=== PATIENT | male | born 1985 | race Caucasian/White ===

== ENCOUNTER 2018-09-24 15:57 | Emergency (ER) | payer OTHER, MEDICAID, SELFPAY ==
[2018-09-24 16:00] VITALS: BP 118/65; PULSE 55; RESP 14; TEMP 36.7; O2SAT 97
[2018-09-24 16:34] LABS: Influenza A and B by PCR Rapid Negative (Negative)
[2018-09-24 19:00] VITALS: BP 119/62; PULSE 58; RESP 14; TEMP 36.9; O2SAT 99
--- NOTE | 2018-09-24 23:58 | ED_ITS ---
HPI - URI/Sore Throat General Chief Complaint: Upper Respiratory Symptoms Stated Complaint: SINUS PAIN Time Seen by Provider: 09/24/18 18:44 Source: patient and family Mode of arrival: ambulatory Limitations: no limitations History of Present Illness HPI Narrative: 33-year-old male smoker without significant medical history presents with his in the chief complaint of a few days of nasal drainage, congestion, facial pain and cough. He has had no production of sputum. He has had no fever or chills nor headache or sore throat. He he has been exposed to other ill persons. He denies nausea, vomiting or diarrhea. MD Complaint: cough, rhinorrhea, nasal congestion and sinus pain Onset (ago): day(s) Duration: constant Severity: moderate Relieving factors: nothing Exacerbating factors: nothing Able to tolerate fluids by mouth: Yes Treatments prior to arrival: cold medicine Related Data Home Medications Medication Instructions Recorded Confirmed ibuprofen 1,000 mg PO EVERY 4 PRN #0 09/18/17 Previous Rx's Medication Instructions Recorded diazepam [Valium] 5 mg PO Q8HP PRN #10 tab 09/18/17 meloxicam [Mobic] 7.5 mg PO BIDCC PRN #20 tab 09/18/17 tramadol 0 tab PO Q6HP PRN #20 tab 09/18/17 Allergies Allergy/AdvReac Type Severity Reaction Status Date / Time No Known Allergies Allergy Uncoded 10/03/17 12:52 Review of Systems Constitutional Denies chills, Denies fever(s), Denies lethargy and Denies weakness Eyes Denies change in vision, Denies eye discharge, Denies irritation and Denies loss of vision ENT Ears, Nose, Mouth, and Throat: Denies change in voice, Denies neck pain, Reports post nasal drip, Reports sinus pain, Reports sinus pressure and Denies sore throat Cardiovascular Denies chest pain, Denies irregular heart rhythm, Denies lightheadedness, Denies palpitations, Denies dyspnea, Denies dyspnea on exertion and Denies orthopnea Respiratory Reports cough, Denies dyspnea, Denies dyspnea on exertion and Denies wheezing Gastrointestinal Gastrointestinal: Denies abdominal pain, Denies change in bowel habits, Denies diarrhea, Denies nausea and Denies vomiting Genitourinary Denies hematuria, Denies flank pain, Denies urinary incontinence and Denies urinary urgency Musculoskeletal Denies neck pain Integumentary/Breasts Denies pruritus, Denies erythema, Denies rash and Denies wounds Neurologic Denies confusion, Denies loss of vision and Denies weakness Psychiatric Denies anxiety, Denies confusion, Denies depression, Denies homicidal ideation and Denies suicidal ideation Endocrine Denies palpitations Hematologic/Lymphatic Denies easy bruising Allergic/Immunologic Denies wheezing PFSH Social History Smoking Status: Current every day smoker Social History Smoking Status: Current every day smoker Exam Narrative Exam Narrative: GEN: AOx3 and in mild distress EYES: Pupils are equal, round, and reactive to light and accommodation. Extraoccular muscles are intact bilaterally. There is no subconjunctival hemorr kirsten or exudate. ENT: clear post nasal drip. No pharyngeal erythema or exudate. TMs rodriguez B/L with normal landmarks CHEST: Lungs are clear to auscultation bilaterally and free of wheezes, rales, or rhonchi. Heart rate is regular rhythm, there are no murmurs, clicks, rubs, or gallops. There is no chest wall tenderness. ABD: Abdomen is soft and nontender. There is no guarding or rebound. Bowel s ounds are normal in all 4 quadrants. There is no mass or organomegaly. EXT: Full painless ROM of all extremities with no loss of sensation or strength. SKIN: Warm, pink, and dry. No erythema or rash Initial Vital Signs Initial Vital Signs: Vital Signs Temperature 98.1 F 09/24/18 16:00 Pulse Rate 55 L 09/24/18 16:00 Respiratory Rate 14 09/24/18 16:00 Blood Pressure 118/65 09/24/18 16:00 Pulse Oximetry 97 09/24/18 16:00 Course Orders Ordered: ED Orders 09/24/18 16:04 Influenza A and B by PCR Rapid Stat Vital Signs - 8 hr 09/24/18 16:00 09/24/18 19:00 Temperature 98.1 F 98.4 F Pulse Rate 55 L 58 L Respiratory Rate 14 14 Blood Pressure 118/65 119/62 Pulse Oximetry 97 99 MDM - URI/Sore Throat Lab Data Lab Results 09/24/18 Range/Units 16:04 Influenza A & B (PCR) Negative (Negative) Discharge Plan Departure Patient Disposition: Home Clinical Impression: Upper respiratory infection, viral Discharge Date/Time: 09/24/18 19:00 Interventions: ED Discharge Assessment Last Done: 09/24/18 19:00 Instructions: Common Cold Activity Restrictions/Additional Instructions: *You have been diagnosed with [ acute viral URI ] *What to do: *Take medications as directed: over the counter cough and cold meds, make sure it has an antihistamine to dry your secretions *Follow up with your primary care provider in 2-3 days, call for an appointment. Let them know you were seen in the Emergency Department and that we ask that you be seen in follow up *Return to ER if you should have any new, worsening or concerning symptoms Prescriptions: No Action ibuprofen 400 MG tablet 1,000 mg PO EVERY 4 PRNQty: 0 RF: 0 tramadol 50 MG tablet PO Q6HP PRNQty: 20 RF: 0 meloxicam [Mobic] 7.5 MG tablet 7.5 mg PO BIDCC PRNQty: 20 RF: 0 diazepam [Valium] 5 MG tablet 5 mg PO Q8HP PRNQty: 10 RF: 0 Referrals: Vern Mack [Primary Care Provider] - Stand Alone Forms: Work/School Release
== END 2018-09-24 19:00 | disposition home or self-care (01) ==
PROVIDERS: Emergency Medicine; Emergency Provider Emergency Medicine; Family Provider Physician Assistant Medical; PCP Physician Assistant Medical
DX: J06.9 Acute upper respiratory infection, unspecified (principal)
CPT/HCPCS: 87400; 99282

== ENCOUNTER 2018-11-14 22:07 | Emergency (ER) | payer OTHER, MEDICAID, SELFPAY ==
[2018-11-14 22:37] VITALS: BP 118/79; PULSE 76; RESP 20; TEMP 37.1; O2SAT 98; BMI 37.3
--- NOTE | 2018-11-14 23:53 | ED_ITS ---
HPI - URI/Sore Throat General Chief Complaint: Upper Respiratory Symptoms Stated Complaint: Fever, Sinus Pressure, Sore Throat Time Seen by Provider: 11/14/18 23:52 Source: patient Mode of arrival: ambulatory Limitations: no limitations History of Present Illness HPI Narrative: The patient has been ill for 3 days with fever and sore throat. He has minimal cough. He has ear pressure. He is a smoker. He has no a llergies or asthma. He has no productive cough. He has no other complaints. He has been around no one with similar illness. Related Data Home Medications Medication Instructions Recorded Confirmed ibuprofen 1,000 mg PO EVERY 4 PRN #0 09/18/17 Previous Rx's Medication Instructions Recorded diazepam [Valium] 5 mg PO Q8HP PRN #10 tab 09/18/17 meloxicam [Mobic] 7.5 mg PO BIDCC PRN #20 tab 09/18/17 tramadol 0 tab PO Q6HP PRN #20 tab 09/18/17 amoxicillin 500 mg PO TID #26 cap 11/15/18 Allergies Allergy/AdvReac Type Severity Reaction Status Date / Time No Known Allergies Allergy Uncoded 10/03/17 12:52 Review of Systems Review of Systems ROS Unobtainable: All systems reviewed & are unremarkable except as noted in HPI and below Constitutional Reports anorexia, Reports body ache(s), Reports chills and Reports fever(s) Eyes Denies eye discharge ENT Ears, Nose, Mouth, and Throat: Denies change in voice, Denies dizziness, Denies ear discharge, Reports neck pain and Reports sore throat Cardiovascular Denies chest pain and Denies orthopnea Respiratory Denies cough and Denies wheezing Gastrointestinal Gastrointestinal: Denies abdominal pain, Denies change in bowel habits, Denies diarrhea, Denies nausea and Denies vomiting Musculoskeletal Reports neck pain Integumentary/Breasts Denies pruritus, Denies erythema and Denies rash Neurologic Denies dizziness Allergic/Immunologic Denies wheezing PFSH Surgical History (Updated 11/15/18 @ 00:03 by Yovany Anderson MD) No pertinent past surgical history (Acute) Social History Smoking Status: Current every day smoker Social History Smoking Status: Current every day smoker Exam Initial Vital Signs Initial Vital Signs: Vital Signs Temperature 98.8 F 11/14/18 22:37 Pulse Rate 76 11/14/18 22:37 Respiratory Rate 20 11/14/18 22:37 Blood Pressure 118/79 11/14/18 22:37 Pulse Oximetry 98 11/14/18 22:37 Const General: cooperative and well developed Nutritional Appearance: well nourished Orientation: alert, awake, oriented x3 and not confused HENMT Head: normocephalic and atraumatic Ears: external ears normal and TM's normal bilaterally Nose: external nose normal and No nasal discharge Face and sinus: sinuses nontender and face symmetric Mouth: oral mucosae normal and moist mucous membranes Teeth and gingiva: dentition normal Throat: abnormal tonsil (erythema with exudate) bilaterally Extrem General: full ROM Course Course Narrative: The patient has strep throat. He was started on ibuprofen for pain or fever, as well as amoxicillin. He will be discharged home with a work excuse for 2 days. Vital Signs - 8 hr 11/14/18 22:37 Temperature 98.8 F Pulse Rate 76 Respiratory Rate 20 Blood Pressure 118/79 Pulse Oximetry 98 MDM - URI/Sore Throat Lab Data Point of Care Testing Rapid Strep A Positive Discharge Plan Departure Patient Disposition: Home Clinical Impression: Acute streptococcal pharyngitis Instructions: DI for Strep Throat Activity Restrictions/Additional Instructions: Amoxicillin 500 mg 3 times daily for 10 days. Tylenol 2 tablets every 4 hours, or Advil 4 tablets every 6-8 hours. Be sure you are drinking plenty of fluids and stay well hydrated. Return to the ER if necessary. Prescriptions: New amoxicillin 500 mg capsule 500 mg PO TID Qty: 26 RF: 0 No Action ibuprofen 400 MG tablet 1,000 mg PO EVERY 4 PRNQty: 0 RF: 0 tramadol 50 MG tablet PO Q6HP PRNQty: 20 RF: 0 meloxicam [Mobic] 7.5 MG tablet 7.5 mg PO BIDCC PRNQty: 20 RF: 0 diazepam [Valium] 5 MG tablet 5 mg PO Q8HP PRNQty: 10 RF: 0 Referrals: Vern Mack [Primary Care Provider] - Stand Alone Forms: Work Release Note
[2018-11-15] MEDS: AMOXICILLIN 250 MG PREPACK 1 BOTTLE MISC (00:03)
[2018-11-15] MEDS: IBUPROFEN 400 MG TABLET 800 MG PO (00:04)
[2018-11-15 00:16] VITALS: BP 121/81; PULSE 72; RESP 18; TEMP 36.6; O2SAT 99
== END 2018-11-15 00:17 | disposition home or self-care (01) ==
PROVIDERS: Emergency Provider Emergency Medicine; Family Provider Physician Assistant Medical; PCP Physician Assistant Medical
DX: J02.0 Streptococcal pharyngitis (principal)
CPT/HCPCS: 87880; 99282; 99283

== ENCOUNTER 2020-03-22 19:38 | Emergency (ER) | payer OTHER, MEDICAID, SELFPAY ==
[2020-03-22 20:08] VITALS: BP 125/68; PULSE 66; RESP 16; TEMP 36.6; O2SAT 97; BMI 40.1
[2020-03-22 20:33] LABS: RBC Urine None Seen (0-5/HPF)
[2020-03-22 20:55] LABS: Amorphous Sediment Urine 1+; Bacteria Urine Few (2-10); Culture Indicated Urine Specimen Cultured; Mucus Urine 1+ (Negative); Squamous Epithelial Cell Urine 0-1 /HPF (0-5/HPF); WBC Urine 10-30/HPF (0-5/HPF)
[2020-03-22] MEDS: cephALEXin 250 MG CAPSULE 500 MG PO (21:15)
[2020-03-22 21:23] VITALS: BP 129/70; PULSE 77; RESP 16; O2SAT 98
[2020-03-22] MEDS: cephALEXin 250 MG PREPACK 1 BOTTLE MISC (21:30)
--- NOTE | 2020-03-23 02:50 | ED.MALEGU ---
HPI - Male Genitourinary <PHIL Lorenzana - Last Filed: 03/23/20 02:57> General Chief complaint: Urogenital-Male Stated complaint: Thinks UTI Time Seen by Provider: 03/22/20 21:02 Source: patient Mode of arrival: Ambulatory Limitations: no limitations History of Present Illness HPI Narrative: This is a 34-year-old male, smoker, was noncontributing medical history presents to ED with significant other with chief complain of discomfort with urination for about 10 days. Patient denies urinary frequency, urgency, flank pain, fever, chills, nausea or vomiting. Patient denies unusual penile discharge. Patient is not concerned for STIs reporting has one sexual partner. Patient denies discomfort or swelling in perineum or testes. Patient denies sensation of urinary retention or hematuria. Patient denies history of diabetes or previous frequent UTI. Related Data Home Medications Medication Instructions Recorded Confirmed ibuprofen 1,000 mg PO EVERY 4 PRN #0 09/18/17 Previous Rx's Medication Instructions Recorded diazepam [Valium] 5 mg PO Q8HP PRN #10 tab 09/18/17 meloxicam [Mobic] 7.5 mg PO BIDCC PRN #20 tab 09/18/17 tramadol 0 tab PO Q6HP PRN #20 tab 09/18/17 cephalexin [Keflex] 500 mg PO Q6H 7 Days #28 cap 03/22/20 Allergies Allergy/AdvReac Type Severity Reaction Status Date / Time No Known Allergies Allergy Uncoded 10/03/17 12:52 Review of Systems <PHIL Lorenzana - Last Filed: 03/23/20 02:57> Review of Systems Narrative: General: Denies fever, chills, fatigue, malaise, sweats. Respiratory: Denies dyspnea, cough, wheezing, hemoptysis, sputum. Cardiovascular: Denies chest pain, palpitations, orthopnea, edema. Gastrointestinal: Denies nausea, vomiting, abdominal pain, diarrhea, constipation, melena. : See HPI Skin: Denies rash, skin lesions, or other. Neurologic: Denies weakness, headache, numbness, change in speech, confusion, seizures, incoordination. Patient History <PHIL Lorenzana - Last Filed: 03/23/20 02:57> Medical History No significant past medical history (Acute) Surgical History No pertinent past surgical history (Acute) Social History Smoking Status: Current every day smoker Smoking Status: Current every day smoker alcohol intake frequency: a few times a month Substance Use Type: marijuana Exam <PHIL Lorenzana - Last Filed: 03/23/20 02:57> Narrative Exam Narrative: General appearance: well developed, well nourished, in no acute distress. Head: normocephalic, atraumatic, no scalp lesions, non-tender. ENT: Hearing grossly intact. Nose without bleeding, purulent discharge. Airway patent. Neck/Thyroid: neck supple, full range of motion, no visible masses or meningeal signs. No JVD, non-tender without lymphadenopathy. Skin: no suspicious rashes, lesions over visible areas. Warm and dry and appropriate color for ethnicity. Heart: no clubbing, no cyanosis, no edema. S1 and S2 normal. RRR w/o murmurs, clicks, or bruits. Lungs: Breathing even and unlabored. No stridor. No accessory muscles used. Able to speak in full sentences. Chest: normal shape and expansion. Abdomen: non-obese, non-distended. Neurologic: alert and oriented. Cognitive exam, HOUSEMAID and PNS grossly intact on informal exam. Psych: good eye contact, normal affect. Initial Vital Signs Initial Vital Signs: Vital Signs Temperature 97.8 F 03/22/20 20:08 Pulse Rate 66 03/22/20 20:08 Respiratory Rate 16 03/22/20 20:08 Blood Pressure 125/68 03/22/20 20:08 Pulse Oximetry 97 03/22/20 20:08 <Evans Mason DO - Last Filed: 03/23/20 03:14> Initial Vital Signs Initial Vital Signs: Vital Signs Temperature 97.8 F 03/22/20 20:08 Pulse Rate 66 03/22/20 20:08 Respiratory Rate 16 03/22/20 20:08 Blood Pressure 125/68 03/22/20 20:08 Pulse Oximetry 97 03/22/20 20:08 Scores <Femi ZepedaTENA goldmanP - Last Filed: 03/23/20 02:57> GCS Hector coma scale eye opening: Spontaneous [place] coma scale verbal response: Orientated [place] coma scale motor response: Obey commands Hector coma scale total score: 15 Course <Femi ZepedaPHIL goldman - Last Filed: 03/23/20 02:57> Orders Ordered: ED Orders 03/22/20 20:16 Urine Culture Stat Urine Microscopic Stat Discontinued Medications Cefazolin Sodium (Keflex 250 Mg Prepack) 1 bottle MISC SEEINSTR ONE Stop: 03/22/20 21:25 Last Admin: 03/22/20 21:30 Dose: 1 pack Documented by: JAH Cephalexin HCl (Keflex) 500 mg PO NOW ONE Stop: 03/22/20 21:13 Last Admin: 03/22/20 21:15 Dose: 500 mg Documented by: NURIA Vital Signs Vital signs: Vital Signs - 8 hr 03/22/20 20:08 03/22/20 21:23 Temperature 97.8 F Pulse Rate 66 77 Respiratory Rate 16 16 Blood Pressure 125/68 129/70 Pulse Oximetry 97 98 <Evans Mason DO - Last Filed: 03/23/20 03:14> Orders Ordered: ED Orders 03/22/20 20:16 Urine Culture Stat Urine Microscopic Stat Discontinued Medications Cefazolin Sodium (Keflex 250 Mg Prepack) 1 bottle MISC SEEINSTR ONE Stop: 03/22/20 21:25 Last Admin: 03/22/20 21:30 Dose: 1 pack Documented by: JAH Cephalexin HCl (Keflex) 500 mg PO NOW ONE Stop: 03/22/20 21:13 Last Admin: 03/22/20 21:15 Dose: 500 mg Documented by: ORLININ Vital Signs Vital signs: Vital Signs - 8 hr 03/22/20 20:08 03/22/20 21:23 Temperature 97.8 F Pulse Rate 66 77 Respiratory Rate 16 16 Blood Pressure 125/68 129/70 Pulse Oximetry 97 98 MDM - Male Genitourinary <Femi Teixeira-CatarinoPHIL goldman - Last Filed: 03/23/20 02:57> Differential Diagnosis Differential diagnosis: Likely urinary tract infection and urethritis Medical Records Attestation: I reviewed the patient's medical records. Lab Data Attestation: I reviewed the patient's lab results. Labs: Lab Results 03/22/20 Range/Units 20:16 Urine RBC None seen (0-5/HPF) Urine WBC 10-30/hpf H (0-5/HPF) Ur Squamous Epith Cells 0-1 /hpf (0-5/HPF) Amorphous Sediment 1+ Urine Bacteria Few (2-10) H (None) Urine Mucus 1+ H (Negative) Ur Culture Indicated? Specimen cultured Urine Dip Bedside Urine Glucose Negative Bedside Urine Bilirubin - Negative Bedside Urine Ketone - Negative Urine Specific [place] 1.020 Bedside Urine Occult Blood - Negative Bedside Urine pH 6.0 Bedside Urine Protein - Negative Bedside Urine Urobilinogen - Negative Bedside Urine Nitrite - Negative Bedside Urine Leukocytes +/- 15 Esterase MDM Narrative Medical decision making narrative: Physical exam is unremarkable. Patient's only symptoms is dysuria without previous UTI, prostatitis, diabetes or immunocompromise condition. Patient is afebrile, nontoxic appearing, with normotensive and heart rate. Urine test shows +/- 15 of leukoesterase without nitrites. Urine microscopic test shows 10-30 hpf of WBC with few bacteria. Urine culture is pending. Patient is likely have UTI. Patient is treated with Keflex 500 mg q.i.d. for 7 day course as male UTI. Return precautions were discussed with patient and patient verbalized understanding and agreement to treatment plan. <Evans Mason DO - Last Filed: 03/23/20 03:14> Lab Data Labs: Lab Results 03/22/20 Range/Units 20:16 Urine RBC None seen (0-5/HPF) Urine WBC 10-30/hpf H (0-5/HPF) Ur Squamous Epith Cells 0-1 /hpf (0-5/HPF) Amorphous Sediment 1+ Urine Bacteria Few (2-10) H (None) Urine Mucus 1+ H (Negative) Ur Culture Indicated? Specimen cultured Urine Dip Bedside Urine Glucose Negative Bedside Urine Bilirubin - Negative Bedside Urine Ketone - Negative Urine Specific [place] 1.020 Bedside Urine Occult Blood - Negative Bedside Urine pH 6.0 Bedside Urine Protein - Negative Bedside Urine Urobilinogen - Negative Bedside Urine Nitrite - Negative Bedside Urine Leukocytes +/- 15 Esterase Discharge Plan Departure Patient Disposition: Home Clinical Impression: Acute UTI Discharge Date/Time: 03/22/20 21:33 Instructions: DI for Urinary Tract Infection (UTI) Activity Restrictions/Additional Instructions: You have been diagnosed with [UTI. Urine appears to be have an infection. Urine culture is pending. Your treated with 1st dose of antibiotic medication Keflex in ED. please continue to take 4 times a day for next 7 days.]. What to do: *Take your medications as directed. Keflex have been transmitted to [facility] in [place]. *Follow up with your primary care provider in 2-3 days, call for an appointment. Let them know you were seen in the ED and that we asked you to be seen in follow up. *Return to ED if you have any new, worsening, or concerning symptoms, such as [worsening pain, high fever, nausea, vomiting, back pain, unusual penile discharge, pain in testicles or any acute concerns]. Prescriptions: New cephalexin [Keflex] 500 mg capsule 500 mg PO Q6H 7 Days Qty: 28 RF: 0 No Action ibuprofen 400 MG tablet 1,000 mg PO EVERY 4 PRNQty: 0 RF: 0 tramadol 50 MG tablet 0 tab PO Q6HP PRNQty: 20 RF: 0 meloxicam [Mobic] 7.5 MG tablet 7.5 mg PO BIDCC PRNQty: 20 RF: 0 diazepam [Valium] 5 MG tablet 5 mg PO Q8HP PRNQty: 10 RF: 0 Referrals: Vern Mack [Primary Care Provider] - <Evans Mason DO - Last Filed: 03/23/20 03:14> [facility] Dr Mason Co-Sign Statement: I was available for consultation during this patient's emergency department visit. This chart is signed by myself for administrative purposes only. I did not have direct contact with this patient during this visit. They were seen independently by the APC.
== END 2020-03-22 21:33 | disposition home or self-care (01) ==
PROVIDERS: Emergency Medicine; Emergency Provider Nurse Practitioner Family; Family Provider Physician Assistant Medical; PCP Physician Assistant Medical
DX: N39.0 Urinary tract infection, site not specified (principal)
CPT/HCPCS: 81003; 81015; 87086; 99283

== ENCOUNTER → 2021-07-12 11:23 | Outpatient (CLI) | payer OTHER, MEDICAID, SELFPAY ==
[2021-07-12 12:15] LABS: COVID19 -Nasal RAPID POSITIVE (Negative)
== END ==
PROVIDERS: Family Provider Physician Assistant Medical; PCP Physician Assistant Medical; Referring Provider Physician Assistant; Visit Provider Physician Assistant
DX: U07.1 COVID-19 (principal); Z20.822 Contact with and (suspected) exposure to COVID-19
CPT/HCPCS: 87635

== ENCOUNTER 2022-06-08 19:18 | Emergency (ER) | payer OTHER, MEDICAID, SELFPAY ==
[2022-06-08 19:31] VITALS: BP 121/62; PULSE 77; RESP 24; TEMP 36.9; O2SAT 95; BMI 40.1
[2022-06-08 21:52] LABS: Influenza A - CEPHEID Flu A POSITIVE (NEGATIVE); Influenza B - CEPHEID Flu B NEGATIVE (NEGATIVE); Respiratory Syncytial Virus Negative (Negative)
[2022-06-08 21:53] LABS: COVID-19 CEPHEID 4-PLEX PCR Negative (Negative)
== END 2022-06-08 22:07 | disposition left against medical advice (07) ==
PROVIDERS: Emergency Provider Emergency Medicine; Family Provider Physician Assistant Medical; PCP Physician Assistant Medical
DX: R50.9 Fever, unspecified (principal)
CPT/HCPCS: 0241U; 99281

== ENCOUNTER 2022-07-07 14:30 | Outpatient (RCR) | payer OTHER, MEDICAID, SELFPAY ==
--- NOTE | 2022-06-27 18:43 | PT.OIE ---
Current Diagnoses Other chronic pain (06/27/22) Pain in left knee (06/27/22) Difficulty in walking, not elsewhere classified (06/27/22) Weakness (06/27/22) Past Medical History (Last Reviewed 07/12/21 @ 11:47 by Amber Wayne PA-C) No significant past medical history Past Surgical History (Last Reviewed 07/12/21 @ 11:47 by Amber Wayne PA-C) No pertinent past surgical history Visit Care Team Role Provider Type Vern Mack PA-C Family Provider Non-Staff Specialty: Medical Address: [address] [place] [address], [id number] Email: Chalino Recio MD Attending Provider Non-Staff Primary Care Provider Referring Provider Specialty: Family Practice Address: [address] [place] [address], [id number] Email: Physical Therapy Initial Evaluation PT-OP-A Visit Information Start: 06/08/22 18:07 Freq: Status: Active Protocol: Document 06/27/22 14:37 [facility] (Rec: 06/27/22 15:24 [facility] [id number]) Out-Patient Physical Therapy Visit Information Visit Information Visit Type Initial Evaluation Visit Start Time 14:37 Visit Stop Time 15:19 Total Visit Minutes 42 Visit Number 1 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 He did He typically does [place] and has to go up/ down ladders which really irritates it. He is laid off right now (since Mar)and is hoping to get it taken care of while off. He used to do a lot of extreme sports and had a lot of injuries. He has stopped sport because he kept getting hurt. Knee has given out on him. He does have back pain but its mostly with work. Pt reports he gets sore after hiking but not as bad as his pain w/work. He sometimes has to take days off mid season d/ t his knee. Pt reprots hx of cracked knee caps. He does try to workout w/his older kid and gets sore w/running etc. He is more painful on uneven surfaces. hx of L broken ankle w/o treatment Prior Treatments and Tests Xray-nothing visualized Treatment Goals Patient/Caregiver Goals Be able to work iwthout pain, hike w/family & workout w/son PT-OP-C Subjective Start: 06/08/22 18:07 Freq: Status: Active Protocol: Document 06/27/22 14:37 [facility] (Rec: 06/27/22 15:24 [facility] [id number]) Patient Questionnaires Lower Extremity Functional Scale LEFS Score 47 OP-PT Pain Assessment Location L knee Pain Location Details lat knee Scale Used worst 8/10 Description Throbbing,With Movement Frequency Intermittent Pain Duration a couple days Pain Aggravating Factors Stair Climbing Other Pain Aggravating Factors ladders, high steps, squatting , kneeling Pain Alleviating Factors Inactivity Other Pain Alleviating Factors icyhot PT-OP-D Balance Start: 06/08/22 18:07 Freq: Status: Active Protocol: Document 06/27/22 14:37 [facility] (Rec: 06/27/22 15:24 [facility] [id number]) Balance Tests Single Limb Standing Single Limb- Right > 30 sec min lat lean; EC 5 sec Single Limb- Left >30 sec sig lat lean; EC 4 sec PT-OP-F Manual Assessment Start: 06/08/22 18:07 Freq: Status: Active Protocol: Document 06/27/22 14:37 [facility] (Rec: 06/27/22 15:24 [facility] [id number]) Manual Assessments Soft Tissue Assessment Soft Tissue Mobility Assessment tightness: L HS, calf, ITB, tender at jt line and LCL Joint Mobility Assessment Joint Mobility Assessment L>R tibia IR and IR w/knee bend; L femur ER w/knee bend PT-OP-G Mobility & Gait Start: 06/08/22 18:07 Freq: Status: Active Protocol: Document 06/27/22 14:37 [facility] (Rec: 06/27/22 15:24 [facility] [id number]) OP Gait Assessment Comments Gait Comments dec push off L>R; dec stance time LLE and lat lean over LLE PT-OP-K Range of Motion Start: 06/08/22 18:07 Freq: Status: Active Protocol: Document 06/27/22 14:37 [facility] (Rec: 06/27/22 15:24 [facility] [id number]) Knee Goniometric Range of Motion Knee Right Flexion Active (degrees) 120 Hyper-Extension Active 2 Comments knee to wall 2 in Left Flexion Active (degrees) 119 Extension Active (degrees) 0 Comments knee to wall 1 in; flex tight PT-OP-L Special Tests Start: 06/08/22 18:07 Freq: Status: Active Protocol: Document 06/27/22 14:37 [facility] (Rec: 06/27/22 15:24 [facility] [id number]) Special Tests Knee Special Tests Segura Chondromalacia Test Results neg-does not improve pain Thessaly Test 5 Degrees Test Results positive pain Apley's Compression Test Results positive pain Sarah Test Test Results positive for pain w/med rot Amanda's Test Test Results L post Walton's Compression Test Results neg Straight Leg Raise Test Results L 78; R 90 Gold Test Results RF & hip flexors tight B Varus- 25 Degrees Test Results pain & laxity Valgus- 25 Degrees Test Results pain;mild laxity Posterior Draw Test Results neg Olu's Test Results neg PT-OP-M Strength Start: 06/08/22 18:07 Freq: Status: Active Protocol: Document 06/27/22 14:37 [facility] (Rec: 06/27/22 15:24 [facility] [id number]) Hip Strength Hip Manual Muscle Testing Right Flexion (L2) 5 Normal Extension (S1) 5 Normal Abduction 5 Normal Adduction 5 Normal External Rotation 4+ Good+ Internal Rotation 5 Normal Left Flexion (L2) 4+ Good+ Extension (S1) 4 Good Abduction 4 Good Adduction 3 Fair External Rotation 4 Good Internal Rotation 4+ Good+ Comments pain rotations Knee Strength Knee Manual Muscle Testing Right Flexion (S2) 5 Normal Extension (L3) 5 Normal Left Flexion (S2) 4 Good Extension (L3) 4- Good- Ankle/Foot Strength Ankle and Foot Manual Muscle Testing Right Dorsiflexion (L4) 5 Normal Plantarflexion (S1) 5 Normal Inversion 5 Normal Eversion (S1) 5 Normal Left Dorsiflexion (L4) 5 Normal Plantarflexion (S1) 5 Normal Inversion 5 Normal Eversion (S1) 5 Normal Comments discomfort w/testing eversion & DF ; 20 heel raises-pain lat ankle and knee PT-OP-T Assessment and Plan Start: 06/08/22 18:07 Freq: Status: Active Protocol: Document 06/27/22 14:37 [facility] (Rec: 06/27/22 15:24 [facility] [id number]) Physical Therapy Assessment Rehab Potential Rehabilitation Potential Good Evaluation Complexity Number of Personal Factors/Comorbidities 3 or More Number of Body Systems Impaired 4 or More Clinical Presentation at Evaluation Evolving Impairments Impairments Activity Tolerance,Balance, Functional Activities, Functional Mobility,Gait,Pain, Posture,ROM,Soft Tissue Mobility,Strength Goals balance [facility] Goal (LTG) Pt will be able to do SLS on LLE w/o lat lean for 30 sec LTG Duration 09/14/22 activities Short Term Goal (STG) Pt will be able to hike and workout with his kids w/o inc pain. STG Duration 08/09/22 Security Services Specialist Goal (LTG) Pt will be able to work w/o any inc pain greater than 2/10 . LTG Duration 09/19/22 strength Short Term Goal (STG) Pt will be indep w/HEP STG Duration 07/27/22 Security Services Specialist Goal (LTG) Pt will score 5/5 on all MMT w /o inc pain to show improved stability to LLE in order to do his work requirements. LTG Duration 09/14/22 LEFS Impairment 47/80 Short Term Goal (STG) Pt will score at 58/80 on LEFS to show improved functional ability. STG Duration 08/14/22 [facility] Goal (LTG) Pt will score at 75/80 on LEFS to show improved functional ability. LTG Duration 09/19/22 Assessment Summary Assessment Pt presents with possible LCL tear and lateral meniscus tear based on testing today. He had positive LCL test w/pain and laxity and pain along LCL region & 3 positive meniscus tests & joint line tenderness. He has history of traumatic injury to L knee, which indicates there may be tears w /other data. Pt's PCP's office was called and message left re:this information and PT recommendation for MD to consider referral to Ortho and for MRI. Pt has limited ankle motion, limited R leg flexibility, impaired gliding of tib and femur on L and impaired gait mechanics and strength and would benefit from skilled PT to improve this. Physical Therapy Plan Frequency and Duration Frequency of Treatment 1-2x/wk Duration of treatment (weeks) 12 Plan of Care Start Date 06/27/22 Plan of Care End Date 09/19/22 Therapeutic Interventions Therapeutic Interventions Aquatic Therapy,Balance Training,Gait Training,Home Exercise Program,Joint Mobilizations,Manual Therapy, Neuromuscular Re-education, Orthotic/Prosthetic Management ,Patient/Caregiver Education, Self-Care/Home Management,Soft Tissue Mobilization,Taping, Therapeutic Activities, Therapeutic Exercises Modalities Cold Pack/Ice Massage,Electric Stimulation,Hot Packs, Infrared Therapy,Iontophoresis ,Ultrasound Next Visit Focus/Plan Next Note Type Treatment Note Next Visit Plan Do 2 unit treats only d/t insurance limits; Give HEP: squats, quad/hip flexor stretch, calf stretch, HS stretch, sidesteps w/tband, s/ l add; manual: PA glides to knee, STM to lat quads & ITB, HS & calf & ankle gliding to improve tib tracking
--- NOTE | 2022-06-27 18:43 | PT.OPPOC ---
Physical, Occupational & Speech Therapy At [facility] Current Diagnoses Other chronic pain (06/27/22) Pain in left knee (06/27/22) Difficulty in walking, not elsewhere classified (06/27/22) Weakness (06/27/22) Visit Care Team Role Provider Type Vern Mack PA-C Family Provider Non-Staff Specialty: Medical Address: [address] [place] [address], [id number] Email: Chalino Recio MD Attending Provider Non-Staff Primary Care Provider Referring Provider Specialty: Family Practice Address: [address] [place] [address], [phone] Email: Plan Of Care PT-OP-T Assessment and Plan Start: 06/08/22 18:07 Freq: Status: Active Protocol: Document 06/27/22 14:37 [facility] (Rec: 06/27/22 15:24 [facility] [id number]) Physical Therapy Assessment Rehab Potential Rehabilitation Potential Good Evaluation Complexity Number of Personal Factors/Comorbidities 3 or More Number of Body Systems Impaired 4 or More Clinical Presentation at Evaluation Evolving Impairments Impairments Activity Tolerance,Balance, Functional Activities, Functional Mobility,Gait,Pain, Posture,ROM,Soft Tissue Mobility,Strength Goals balance Intermediate Goal (LTG) Pt will be able to do SLS on LLE w/o lat lean for 30 sec LTG Duration 09/14/22 activities Short Term Goal (STG) Pt will be able to hike and workout with his kids w/o inc pain. STG Duration 08/09/22 Intermediate Goal (LTG) Pt will be able to work w/o any inc pain greater than 2/10 . LTG Duration 09/19/22 strength Short Term Goal (STG) Pt will be indep w/HEP STG Duration 07/27/22 Intermediate Goal (LTG) Pt will score 5/5 on all MMT w /o inc pain to show improved stability to LLE in order to do his work requirements. LTG Duration 09/14/22 LEFS Impairment 47/80 Short Term Goal (STG) Pt will score at 58/80 on LEFS to show improved functional ability. STG Duration 08/14/22 Chemical Processing Laborer Goal (LTG) Pt will score at 75/80 on LEFS to show improved functional ability. LTG Duration 09/19/22 Assessment Summary Assessment Pt presents with possible LCL tear and lateral meniscus tear based on testing today. He had positive LCL test w/pain and laxity and pain along LCL region & 3 positive meniscus tests & joint line tenderness. He has history of traumatic injury to L knee, which indicates there may be tears w /other data. Pt's PCP's office was called and message left re:this information and PT recommendation for MD to consider referral to Ortho and for MRI. Pt has limited ankle motion, limited R leg flexibility, impaired gliding of tib and femur on L and impaired gait mechanics and strength and would benefit from skilled PT to improve this. Physical Therapy Plan Frequency and Duration Frequency of Treatment 1-2x/wk Duration of treatment (weeks) 12 Plan of Care Start Date 06/27/22 Plan of Care End Date 09/19/22 Therapeutic Interventions Therapeutic Interventions Aquatic Therapy,Balance Training,Gait Training,Home Exercise Program,Joint Mobilizations,Manual Therapy, Neuromuscular Re-education, Orthotic/Prosthetic Management ,Patient/Caregiver Education, Self-Care/Home Management,Soft Tissue Mobilization,Taping, Therapeutic Activities, Therapeutic Exercises Modalities Cold Pack/Ice Massage,Electric Stimulation,Hot Packs, Infrared Therapy,Iontophoresis ,Ultrasound Next Visit Focus/Plan Next Note Type Treatment Note Next Visit Plan Do 2 unit treats only d/t insurance limits; Give HEP: squats, quad/hip flexor stretch, calf stretch, HS stretch, sidesteps w/tband, s/ l add; manual: PA glides to knee, STM to lat quads & ITB, HS & calf & ankle gliding to improve tib tracking Plan of Care Dates Plan of Care Start Date 06/27/22 Plan of Care End Date 09/19/22 Electronically Signed by: Nicole Long, PT 06/27/22 3667 If you are in agreement with this Plan of Care, please return a signed and dated copy. I have reviewed this Plan of Care and certify that the skilled therapy services above are required to meet the patient?s needs. Physician Signature Date Printed Name and Credentials Clinical Instructor Signature Printed Name and Credentials
--- NOTE | 2022-06-30 15:29 | PT.OTN ---
Current Diagnoses Other chronic pain (06/30/22) Pain in left knee (06/30/22) Difficulty in walking, not elsewhere classified (06/30/22) Weakness (06/30/22) Physical Therapy Treatment Note PT-OP-A Visit Information Start: 06/08/22 18:07 Freq: Status: Active Protocol: Document 06/30/22 14:36 [facility] (Rec: 06/30/22 16:35 [facility] [id number]) Out-Patient Physical Therapy Visit Information Visit Information Visit Type Treatment Note Visit Note Do 2 unit treats only d/t insurance limits ! Visit Start Time 14:36 Visit Stop Time 15:29 Total Visit Minutes 53 Visit Number 2 Number of CLINICAL ASST Visits 1 PT-OP-B Current Condition Start: 06/08/22 18:07 Freq: Status: Active Protocol: Document 06/27/22 14:37 [facility] (Rec: 06/27/22 15:24 [facility] [id number]) Current Condition History of Current Condition Onset Date at least 13-14 years ago Current Complaints L knee pain History of Current Condition Pt reports he had a snowboarding incident 13-14 years ago where he hurt his knee. He did He typically does [place] and has to go up/ down ladders which really irritates it. He is laid off right now (since Mar)and is hoping to get it taken care of while off. He used to do a lot of extreme sports and had a lot of injuries. He has stopped sport because he kept getting hurt. Knee has given out on him. He does have back pain but its mostly with work. Pt reports he gets sore after hiking but not as bad as his pain w/work. He sometimes has to take days off mid season d/ t his knee. Pt reprots hx of cracked knee caps. He does try to workout w/his older kid and gets sore w/running etc. He is more painful on uneven surfaces. hx of L broken ankle w/o treatment Prior Treatments and Tests Xray-nothing visualized Treatment Goals Patient/Caregiver Goals Be able to work iwthout pain, hike w/family & workout w/son PT-OP-C Subjective Start: 06/08/22 18:07 Freq: Status: Active Protocol: Document 06/30/22 14:36 [facility] (Rec: 06/30/22 16:35 [facility] [id number]) OP-PT Subjective Patient Comments Patient Comments Pt reported did ok after eval last tx. He states wants CLINICAL ASST to look at program for lower body exercises in [place] if think are ok to do right now. PT-OP-D Balance Start: 06/08/22 18:07 Freq: Status: Active Protocol: Document 06/27/22 14:37 [facility] (Rec: 06/27/22 15:24 [facility] [id number]) Balance Tests Single Limb Standing Single Limb- Right > 30 sec min lat lean; EC 5 sec Single Limb- Left >30 sec sig lat lean; EC 4 sec PT-OP-F Manual Assessment Start: 06/08/22 18:07 Freq: Status: Active Protocol: Document 06/27/22 14:37 [facility] (Rec: 06/27/22 15:24 [facility] [id number]) Manual Assessments Soft Tissue Assessment Soft Tissue Mobility Assessment tightness: L HS, calf, ITB, tender at jt line and LCL Joint Mobility Assessment Joint Mobility Assessment L>R tibia IR and IR w/knee bend; L femur ER w/knee bend PT-OP-G Mobility & Gait Start: 06/08/22 18:07 Freq: Status: Active Protocol: Document 06/27/22 14:37 [facility] (Rec: 06/27/22 15:24 [facility] [id number]) OP Gait Assessment Comments Gait Comments dec push off L>R; dec stance time LLE and lat lean over LLE PT-OP-K Range of Motion Start: 06/08/22 18:07 Freq: Status: Active Protocol: Document 06/27/22 14:37 [facility] (Rec: 06/27/22 15:24 [facility] [id number]) Knee Goniometric Range of Motion Knee Right Flexion Active (degrees) 120 Hyper-Extension Active 2 Comments knee to wall 2 in Left Flexion Active (degrees) 119 Extension Active (degrees) 0 Comments knee to wall 1 in; flex tight PT-OP-L Special Tests Start: 06/08/22 18:07 Freq: Status: Active Protocol: Document 06/27/22 14:37 [facility] (Rec: 06/27/22 15:24 [facility] [id number]) Special Tests Knee Special Tests Segura Chondromalacia Test Results neg-does not improve pain Thessaly Test 5 Degrees Test Results positive pain Apley's Compression Test Results positive pain Sarah Test Test Results positive for pain w/med rot Amanda's Test Test Results L post Walton's Compression Test Results neg Straight Leg Raise Test Results L 78; R 90 Gold Test Results RF & hip flexors tight B Varus- 25 Degrees Test Results pain & laxity Valgus- 25 Degrees Test Results pain;mild laxity Posterior Draw Test Results neg Olu's Test Results neg PT-OP-M Strength Start: 06/08/22 18:07 Freq: Status: Active Protocol: Document 06/27/22 14:37 [facility] (Rec: 06/27/22 15:24 [facility] [id number]) Hip Strength Hip Manual Muscle Testing Right Flexion (L2) 5 Normal Extension (S1) 5 Normal Abduction 5 Normal Adduction 5 Normal External Rotation 4+ Good+ Internal Rotation 5 Normal Left Flexion (L2) 4+ Good+ Extension (S1) 4 Good Abduction 4 Good Adduction 3 Fair External Rotation 4 Good Internal Rotation 4+ Good+ Comments pain rotations Knee Strength Knee Manual Muscle Testing Right Flexion (S2) 5 Normal Extension (L3) 5 Normal Left Flexion (S2) 4 Good Extension (L3) 4- Good- Ankle/Foot Strength Ankle and Foot Manual Muscle Testing Right Dorsiflexion (L4) 5 Normal Plantarflexion (S1) 5 Normal Inversion 5 Normal Eversion (S1) 5 Normal Left Dorsiflexion (L4) 5 Normal Plantarflexion (S1) 5 Normal Inversion 5 Normal Eversion (S1) 5 Normal Comments discomfort w/testing eversion & DF ; 20 heel raises-pain lat ankle and knee PT-OP-Q Treatments Start: 06/08/22 18:07 Freq: Status: Active Protocol: Document 06/30/22 14:36 [facility] (Rec: 06/30/22 16:35 [facility] [id number]) Gym Equipment Shuttle Recovery SL Details cued knee w/mid foot Resistance 62# (2 new band) Reps/Time 2x10 DL Details cued knee w/mid foot Resistance 100# (3 new bands) Shuttle Recovery Platform Stable Reps/Time 2x10 Therapeutic Exercises Supine Exercises Fig 4 stretch Supine Exercise Name added toHEP Side bilateral Equipment Used R foot over L knee, Lfoot inside R thigh approx levy/ knee Reps/Minutes 30 x2 Comments cued equal pelvis contact table, TA for no LB compensation Sidelying Exercises hip abd Sidelying Exercise Name review online HEP Side bilateral Equipment Used heel lead Reps/Minutes 2x52-3 reps Comments max cues for stacked alignment , bottom knee bent, lift no back rolling Sitting Exercises LS/ QL stretch Sitting Exercise Name added to HEP Reps/Minutes 30 x2 Comments cued straight back- good feedback stretch HS stretch Sitting Exercise Name added to HEP Side bilateral Reps/Minutes 30sx2 Comments cued straight back self STMs Sitting Exercise Name added to HEP Side bilateral Equipment Used rolling pin quad, HS, calf, ITB STS Sitting Exercise Name squat-arm across chest Equipment Used squat tap chair, mirror, slow pacing. Reps/Minutes 2x5 reps Comments cued knees abd more descend and w&behind toes Standing Exercises band walk Standing Exercise Name added to HEP: Fwd/Bwd/Lateral Resistance RTB Reps/Minutes 20 ft x2 laps each Comments cued tall, neutral PT-OP-T Assessment and Plan Start: 06/08/22 18:07 Freq: Status: Active Protocol: Document 06/30/22 14:36 [facility] (Rec: 06/30/22 16:35 SP [id number]) Physical Therapy Assessment Goals balance Halfway Goal (LTG) Pt will be able to do SLS on LLE w/o lat lean for 30 sec LTG Duration 09/14/22 activities Short Term Goal (STG) Pt will be able to hike and workout with his kids w/o inc pain. STG Duration 08/09/22 Halfway Goal (LTG) Pt will be able to work w/o any inc pain greater than 2/10 . LTG Duration 09/19/22 strength Short Term Goal (STG) Pt will be indep w/HEP STG Duration 07/27/22 Halfway Goal (LTG) Pt will score 5/5 on all MMT w /o inc pain to show improved stability to LLE in order to do his work requirements. LTG Duration 09/14/22 LEFS Impairment 47/80 Short Term Goal (STG) Pt will score at 58/80 on LEFS to show improved functional ability. STG Duration 08/14/22 Halfway Goal (LTG) Pt will score at 75/80 on LEFS to show improved functional ability. LTG Duration 09/19/22 Assessment Summary Assessment Pt good feedback to self STMs for massage tight/sore muscles , limited in L>R hip ER noted, modified hip ER stretching for benefits and allow improved ROM. Mod/Max cues during squats/ STS, side hip abd, band walk for proper form . Pt reported muscles sore but a good isolated work out, found is weak in core and hip abd's, found cues and HOs beneficial for proper form for carryover at home. Physical Therapy Plan Frequency and Duration Frequency of Treatment 1-2x/wk Duration of treatment (weeks) 12 Plan of Care Start Date 06/27/22 Plan of Care End Date 09/19/22 Therapeutic Interventions Therapeutic Interventions Aquatic Therapy,Balance Training,Gait Training,Home Exercise Program,Joint Mobilizations,Manual Therapy, Neuromuscular Re-education, Orthotic/Prosthetic Management ,Patient/Caregiver Education, Self-Care/Home Management,Soft Tissue Mobilization,Taping, Therapeutic Activities, Therapeutic Exercises Modalities Cold Pack/Ice Massage,Electric Stimulation,Hot Packs, Infrared Therapy,Iontophoresis ,Ultrasound Next Visit Focus/Plan Next Note Type Treatment Note Next Visit Plan Do 2 unit treats only d/t insurance limits Review HEP: squats, stretching, STMs. Add : quad/hip flexor stretch, calf stretch, manual: PA glides to knee, STM to lat quads & ITB, HS & calf & ankle gliding to improve tib tracking
--- NOTE | 2022-07-03 15:25 | PT.OTN ---
Current Diagnoses Other chronic pain (07/03/22) Pain in left knee (07/03/22) Difficulty in walking, not elsewhere classified (07/03/22) Weakness (07/03/22) Physical Therapy Treatment Note PT-OP-A Visit Information Start: 06/08/22 18:07 Freq: Status: Active Protocol: Document 07/03/22 14:34 [facility] (Rec: 07/03/22 15:24 [facility] [id number]) Out-Patient Physical Therapy Visit Information Visit Information Visit Type Treatment Note Visit Note Do 2 unit treats only d/t insurance limits ! Visit Start Time 14:36 Visit Stop Time 15:12 Total Visit Minutes 36 Visit Number 3 Number of RHIC SYSTEMS SAFETY ENGINEER Visits 0 PT-OP-B Current Condition Start: 06/08/22 18:07 Freq: Status: Active Protocol: Document 06/27/22 14:37 [facility] (Rec: 06/27/22 15:24 [facility] [id number]) Current Condition History of Current Condition Onset Date at least 13-14 years ago Current Complaints L knee pain History of Current Condition Pt reports he had a snowboarding incident 13-14 years ago where he hurt his knee. He did He typically does [place] and has to go up/ down ladders which really irritates it. He is laid off right now (since Mar)and is hoping to get it taken care of while off. He used to do a lot of extreme sports and had a lot of injuries. He has stopped sport because he kept getting hurt. Knee has given out on him. He does have back pain but its mostly with work. Pt reports he gets sore after hiking but not as bad as his pain w/work. He sometimes has to take days off mid season d/ t his knee. Pt reprots hx of cracked knee caps. He does try to workout w/his older kid and gets sore w/running etc. He is more painful on uneven surfaces. hx of L broken ankle w/o treatment Prior Treatments and Tests Xray-nothing visualized Treatment Goals Patient/Caregiver Goals Be able to work iwthout pain, hike w/family & workout w/son PT-OP-C Subjective Start: 06/08/22 18:07 Freq: Status: Active Protocol: Document 07/03/22 14:34 [facility] (Rec: 07/03/22 15:24 [facility] [id number]) OP-PT Subjective Patient Comments Patient Comments Pt reports some mm soreness and knee soreness w/exercises PT-OP-D Balance Start: 06/08/22 18:07 Freq: Status: Active Protocol: Document 06/27/22 14:37 [facility] (Rec: 06/27/22 15:24 [facility] [id number]) Balance Tests Single Limb Standing Single Limb- Right > 30 sec min lat lean; EC 5 sec Single Limb- Left >30 sec sig lat lean; EC 4 sec PT-OP-F Manual Assessment Start: 06/08/22 18:07 Freq: Status: Active Protocol: Document 06/27/22 14:37 [facility] (Rec: 06/27/22 15:24 [facility] [id number]) Manual Assessments Soft Tissue Assessment Soft Tissue Mobility Assessment tightness: L HS, calf, ITB, tender at jt line and LCL Joint Mobility Assessment Joint Mobility Assessment L>R tibia IR and IR w/knee bend; L femur ER w/knee bend PT-OP-G Mobility & Gait Start: 06/08/22 18:07 Freq: Status: Active Protocol: Document 06/27/22 14:37 [facility] (Rec: 06/27/22 15:24 [facility] [id number]) OP Gait Assessment Comments Gait Comments dec push off L>R; dec stance time LLE and lat lean over LLE PT-OP-K Range of Motion Start: 06/08/22 18:07 Freq: Status: Active Protocol: Document 06/27/22 14:37 [facility] (Rec: 06/27/22 15:24 [facility] [id number]) Knee Goniometric Range of Motion Knee Right Flexion Active (degrees) 120 Hyper-Extension Active 2 Comments knee to wall 2 in Left Flexion Active (degrees) 119 Extension Active (degrees) 0 Comments knee to wall 1 in; flex tight PT-OP-L Special Tests Start: 06/08/22 18:07 Freq: Status: Active Protocol: Document 06/27/22 14:37 [facility] (Rec: 06/27/22 15:24 [facility] [id number]) Special Tests Knee Special Tests Segura Chondromalacia Test Results neg-does not improve pain Thessaly Test 5 Degrees Test Results positive pain Apley's Compression Test Results positive pain Sarah Test Test Results positive for pain w/med rot Amanda's Test Test Results L post Walton's Compression Test Results neg Straight Leg Raise Test Results L 78; R 90 Gold Test Results RF & hip flexors tight B Varus- 25 Degrees Test Results pain & laxity Valgus- 25 Degrees Test Results pain;mild laxity Posterior Draw Test Results neg Olu's Test Results neg PT-OP-M Strength Start: 06/08/22 18:07 Freq: Status: Active Protocol: Document 06/27/22 14:37 [facility] (Rec: 06/27/22 15:24 [facility] [id number]) Hip Strength Hip Manual Muscle Testing Right Flexion (L2) 5 Normal Extension (S1) 5 Normal Abduction 5 Normal Adduction 5 Normal External Rotation 4+ Good+ Internal Rotation 5 Normal Left Flexion (L2) 4+ Good+ Extension (S1) 4 Good Abduction 4 Good Adduction 3 Fair External Rotation 4 Good Internal Rotation 4+ Good+ Comments pain rotations Knee Strength Knee Manual Muscle Testing Right Flexion (S2) 5 Normal Extension (L3) 5 Normal Left Flexion (S2) 4 Good Extension (L3) 4- Good- Ankle/Foot Strength Ankle and Foot Manual Muscle Testing Right Dorsiflexion (L4) 5 Normal Plantarflexion (S1) 5 Normal Inversion 5 Normal Eversion (S1) 5 Normal Left Dorsiflexion (L4) 5 Normal Plantarflexion (S1) 5 Normal Inversion 5 Normal Eversion (S1) 5 Normal Comments discomfort w/testing eversion & DF ; 20 heel raises-pain lat ankle and knee PT-OP-Q Treatments Start: 06/08/22 18:07 Freq: Status: Active Protocol: Document 07/03/22 14:34 [facility] (Rec: 07/03/22 15:24 [facility] [id number]) Therapeutic Exercises Supine Exercises Fig 4 stretch Supine Exercise Name review HEP Side bilateral Reps/Minutes 30 Comments opp knee straight Sidelying Exercises hip abd Side bilateral Reps/Minutes 10 Comments min cues Sitting Exercises HS stretch Side bilateral Reps/Minutes 30s Comments cued straight back STS Sitting Exercise Name squat-arm across chest Resistance lvl 2 Equipment Used chair behind, mirror, slow pacing. Reps/Minutes 15 Comments cued knees abd more descend and w&behind toes Standing Exercises stretches Standing Exercise Name 1. fwd lean 2. quad Side left Reps/Minutes 30 sec band walk Standing Exercise Name added to HEP: Fwd/Bwd/Lateral Resistance lvl 2 Reps/Minutes 20 ftx2 each Comments cued tall, neutral Manual Therapy Treatment Soft Tissue Mobilization ITB Body Location L Mobilization Type Rolling Intensity/Depth Moderate Body Position Hooklying Joint Mobilizations tibfem Body Position Hooklying Comments PA FM ankle Comments distraction calcaneus & lat glide distraction talus & med &AP FM hip Comments inf & ER hooklying FM PT-OP-T Assessment and Plan Start: 06/08/22 18:07 Freq: Status: Active Protocol: Document 07/03/22 14:34 [facility] (Rec: 07/03/22 15:24 [facility] [id number]) Physical Therapy Assessment Goals balance Mobile Home Set Up Person Goal (LTG) Pt will be able to do SLS on LLE w/o lat lean for 30 sec LTG Duration 09/14/22 activities Short Term Goal (STG) Pt will be able to hike and workout with his kids w/o inc pain. STG Duration 08/09/22 Mobile Home Set Up Person Goal (LTG) Pt will be able to work w/o any inc pain greater than 2/10 . LTG Duration 09/19/22 strength Short Term Goal (STG) Pt will be indep w/HEP STG Duration 07/27/22 Half-Way Goal (LTG) Pt will score 5/5 on all MMT w /o inc pain to show improved stability to LLE in order to do his work requirements. LTG Duration 09/14/22 LEFS Impairment 47/80 Short Term Goal (STG) Pt will score at 58/80 on LEFS to show improved functional ability. STG Duration 08/14/22 Half-Way Goal (LTG) Pt will score at 75/80 on LEFS to show improved functional ability. LTG Duration 09/19/22 Assessment Summary Assessment Pt did well with exercises. He still did require soem cueing with the exercises for form but did recall cues RHIC SYSTEMS SAFETY ENGINEER gave last session. Iproved hip ER, and flex and knee flex w/ manual. Physical Therapy Plan Frequency and Duration Frequency of Treatment 1-2x/wk Duration of treatment (weeks) 12 Plan of Care Start Date 06/27/22 Plan of Care End Date 09/19/22 Next Visit Focus/Plan Next Note Type Treatment Note Next Visit Plan Do 2 unit treats only d/t insurance limits Review HEP: squats, stretching, STMs., manual: PA glides to knee, STM to lat quads & ITB, HS & calf & ankle gliding to improve tib tracking
--- NOTE | 2022-07-07 15:08 | PT.OTN ---
Current Diagnoses Other chronic pain (07/07/22) Pain in left knee (07/07/22) Difficulty in walking, not elsewhere classified (07/07/22) Weakness (07/07/22) Physical Therapy Treatment Note PT-OP-A Visit Information Start: 06/08/22 18:07 Freq: Status: Active Protocol: Document 07/07/22 14:34 [facility] (Rec: 07/07/22 15:51 [facility] [id number]) Out-Patient Physical Therapy Visit Information Visit Information Visit Type Treatment Note Visit Note Do 2 unit treats only d/t insurance limits ! Visit Start Time 14:34 Visit Stop Time 15:08 Total Visit Minutes 34 Visit Number 4 Number of GEAR SHAPER SET UP OPERATOR Visits 1 PT-OP-B Current Condition Start: 06/08/22 18:07 Freq: Status: Active Protocol: Document 06/27/22 14:37 [facility] (Rec: 06/27/22 15:24 [facility] [id number]) Current Condition History of Current Condition Onset Date at least 13-14 years ago Current Complaints L knee pain History of Current Condition Pt reports he had a snowboarding incident 13-14 years ago where he hurt his knee. He did He typically does [place] and has to go up/ down ladders which really irritates it. He is laid off right now (since Mar)and is hoping to get it taken care of while off. He used to do a lot of extreme sports and had a lot of injuries. He has stopped sport because he kept getting hurt. Knee has given out on him. He does have back pain but its mostly with work. Pt reports he gets sore after hiking but not as bad as his pain w/work. He sometimes has to take days off mid season d/ t his knee. Pt reprots hx of cracked knee caps. He does try to workout w/his older kid and gets sore w/running etc. He is more painful on uneven surfaces. hx of L broken ankle w/o treatment Prior Treatments and Tests Xray-nothing visualized Treatment Goals Patient/Caregiver Goals Be able to work iwthout pain, hike w/family & workout w/son PT-OP-C Subjective Start: 06/08/22 18:07 Freq: Status: Active Protocol: Document 07/07/22 14:34 [facility] (Rec: 07/07/22 15:51 [facility] [id number]) OP-PT Subjective Patient Comments Patient Comments Pt reports just little muscle soreness no adverse affects to ther ex. PT-OP-D Balance Start: 06/08/22 18:07 Freq: Status: Active Protocol: Document 06/27/22 14:37 [facility] (Rec: 06/27/22 15:24 [facility] [id number]) Balance Tests Single Limb Standing Single Limb- Right > 30 sec min lat lean; EC 5 sec Single Limb- Left >30 sec sig lat lean; EC 4 sec PT-OP-F Manual Assessment Start: 06/08/22 18:07 Freq: Status: Active Protocol: Document 06/27/22 14:37 [facility] (Rec: 06/27/22 15:24 [facility] [id number]) Manual Assessments Soft Tissue Assessment Soft Tissue Mobility Assessment tightness: L HS, calf, ITB, tender at jt line and LCL Joint Mobility Assessment Joint Mobility Assessment L>R tibia IR and IR w/knee bend; L femur ER w/knee bend PT-OP-G Mobility & Gait Start: 06/08/22 18:07 Freq: Status: Active Protocol: Document 06/27/22 14:37 [facility] (Rec: 06/27/22 15:24 [facility] [id number]) OP Gait Assessment Comments Gait Comments dec push off L>R; dec stance time LLE and lat lean over LLE PT-OP-K Range of Motion Start: 06/08/22 18:07 Freq: Status: Active Protocol: Document 06/27/22 14:37 [facility] (Rec: 06/27/22 15:24 [facility] [id number]) Knee Goniometric Range of Motion Knee Right Flexion Active (degrees) 120 Hyper-Extension Active 2 Comments knee to wall 2 in Left Flexion Active (degrees) 119 Extension Active (degrees) 0 Comments knee to wall 1 in; flex tight PT-OP-L Special Tests Start: 06/08/22 18:07 Freq: Status: Active Protocol: Document 06/27/22 14:37 [facility] (Rec: 06/27/22 15:24 [facility] [id number]) Special Tests Knee Special Tests Segura Chondromalacia Test Results neg-does not improve pain Thessaly Test 5 Degrees Test Results positive pain Apley's Compression Test Results positive pain Sarah Test Test Results positive for pain w/med rot Amanda's Test Test Results L post Walton's Compression Test Results neg Straight Leg Raise Test Results L 78; R 90 Gold Test Results RF & hip flexors tight B Varus- 25 Degrees Test Results pain & laxity Valgus- 25 Degrees Test Results pain;mild laxity Posterior Draw Test Results neg Olu's Test Results neg PT-OP-M Strength Start: 06/08/22 18:07 Freq: Status: Active Protocol: Document 06/27/22 14:37 [facility] (Rec: 06/27/22 15:24 [facility] [id number]) Hip Strength Hip Manual Muscle Testing Right Flexion (L2) 5 Normal Extension (S1) 5 Normal Abduction 5 Normal Adduction 5 Normal External Rotation 4+ Good+ Internal Rotation 5 Normal Left Flexion (L2) 4+ Good+ Extension (S1) 4 Good Abduction 4 Good Adduction 3 Fair External Rotation 4 Good Internal Rotation 4+ Good+ Comments pain rotations Knee Strength Knee Manual Muscle Testing Right Flexion (S2) 5 Normal Extension (L3) 5 Normal Left Flexion (S2) 4 Good Extension (L3) 4- Good- Ankle/Foot Strength Ankle and Foot Manual Muscle Testing Right Dorsiflexion (L4) 5 Normal Plantarflexion (S1) 5 Normal Inversion 5 Normal Eversion (S1) 5 Normal Left Dorsiflexion (L4) 5 Normal Plantarflexion (S1) 5 Normal Inversion 5 Normal Eversion (S1) 5 Normal Comments discomfort w/testing eversion & DF ; 20 heel raises-pain lat ankle and knee PT-OP-Q Treatments Start: 06/08/22 18:07 Freq: Status: Active Protocol: Document 07/07/22 14:34 [facility] (Rec: 07/07/22 15:51 [facility] [id number]) Therapeutic Exercises Supine Exercises Fig 4 stretch Supine Exercise Name review HEP Side bilateral Resistance opp knee straight Reps/Minutes 30 Comments states little pressure on lateral L knee Sitting Exercises HS stretch Sitting Exercise Name HEP reviewed Side bilateral Reps/Minutes 30s Comments cued straight back STS Sitting Exercise Name squat-arm across chest Resistance lvl 2 around thighs Equipment Used chair behind, mirror, slow pacing. Reps/Minutes 15 Comments cued knees abd more descend and w&behind toes Standing Exercises single step ups Standing Exercise Name repeated Side bilateral Reps/Minutes 2x10 each Comments cued foot fully on step, heel driven glut fac, knee align- painfree stretches Standing Exercise Name 1. fwd lean HS 2. quad w/ Strap contact counter stab Side left Reps/Minutes 30 sec Comments good feedback stretch Manual Therapy Treatment Soft Tissue Mobilization ITB Body Location L ITB, TFL, Vastus Lateralis Mobilization Type Instrument Assisted,Rolling Intensity/Depth Moderate Body Position Hooklying Comments rolling, rocking cross w/ instruction self application with rolling pin at home. Joint Mobilizations tibfib Joint L distal Direction PA fibula Grade II Body Position Supine tibfem Joint L Body Position Hooklying Comments PA FM ankle Joint L Comments distraction calcaneus & lat glide Posterior talocrual glide Med/ lat, PA/AP general rotation MTPs PT-OP-T Assessment and Plan Start: 06/08/22 18:07 Freq: Status: Active Protocol: Document 07/07/22 14:34 [facility] (Rec: 07/07/22 15:51 [facility] [id number]) Physical Therapy Assessment Goals balance Fdc Goal (LTG) Pt will be able to do SLS on LLE w/o lat lean for 30 sec LTG Duration 09/14/22 activities Short Term Goal (STG) Pt will be able to hike and workout with his kids w/o inc pain. STG Duration 08/09/22 Electronic Resources Librarian Goal (LTG) Pt will be able to work w/o any inc pain greater than 2/10 . LTG Duration 09/19/22 strength Short Term Goal (STG) Pt will be indep w/HEP STG Duration 07/27/22 Fdc Goal (LTG) Pt will score 5/5 on all MMT w /o inc pain to show improved stability to LLE in order to do his work requirements. LTG Duration 09/14/22 LEFS Impairment 47/80 Short Term Goal (STG) Pt will score at 58/80 on LEFS to show improved functional ability. STG Duration 08/14/22 Fdc Goal (LTG) Pt will score at 75/80 on LEFS to show improved functional ability. LTG Duration 09/19/22 Assessment Summary Assessment Pt did well with manual and stretching sit/standing with review on set up and self demonstration good form focused benfits. Requires cues for knee/trunk alignment during squat for hip hinge use of TB for abd fac along with with target (chair) to squat back to to allow knees with and behind toes. Painfree L knee during step ups post cues for glut fac/ knee alignment. Physical Therapy Plan Frequency and Duration Frequency of Treatment 1-2x/wk Duration of treatment (weeks) 12 Plan of Care Start Date 06/27/22 Plan of Care End Date 09/19/22 Therapeutic Interventions Therapeutic Interventions Aquatic Therapy,Balance Training,Gait Training,Home Exercise Program,Joint Mobilizations,Manual Therapy, Neuromuscular Re-education, Orthotic/Prosthetic Management ,Patient/Caregiver Education, Self-Care/Home Management,Soft Tissue Mobilization,Taping, Therapeutic Activities, Therapeutic Exercises Modalities Cold Pack/Ice Massage,Electric Stimulation,Hot Packs, Infrared Therapy,Iontophoresis ,Ultrasound Next Visit Focus/Plan Next Note Type Treatment Note Next Visit Plan Do 2 unit treats only d/t insurance limits Review HEP side ABD, STS/squat w/ TB, review single step ups . manual: PA glides to knee, STM to lat quads & ITB, HS & calf & ankle gliding to improve tib tracking
--- NOTE | 2022-07-17 14:42 | PT-OP ANOTE ---
Pt called re: no show and message left. Pt did cancel last 2 appts prior to this d/t awaiting MRI and MD stated not to go to return PT until after imaging. Pt informed this was last scheduled appt and to call PT re: any changes to plan of care based on imaging/other consults.
--- NOTE | 2022-10-02 11:09 | PT.OPDS ---
Current Diagnoses Other chronic pain (07/07/22) Pain in left knee (07/07/22) Difficulty in walking, not elsewhere classified (07/07/22) Weakness (07/07/22) Visit Care Team Role Provider Type Vern Mack PA-C Family Provider Non-Staff Specialty: Medical Address: [address] [place], [address] Email: Chalino Recio MD Attending Provider Non-Staff Primary Care Provider Referring Provider Specialty: Family Practice Address: [address] [place], [address] Email: Visit Number Visit Number 4 Discharge Summary PT-OP-B Current Condition Start: 06/08/22 18:07 Freq: Status: Active Protocol: Document 06/27/22 14:37 [facility] (Rec: 06/27/22 15:24 [facility] [id number]) Current Condition History of Current Condition Onset Date at least 13-14 years ago Current Complaints L knee pain History of Current Condition Pt reports he had a snowboarding incident 13-14 years ago where he hurt his knee. He did He typically does [place] and has to go up/ down ladders which really irritates it. He is laid off right now (since Mar)and is hoping to get it taken care of while off. He used to do a lot of extreme sports and had a lot of injuries. He has stopped sport because he kept getting hurt. Knee has given out on him. He does have back pain but its mostly with work. Pt reports he gets sore after hiking but not as bad as his pain w/work. He sometimes has to take days off mid season d/ t his knee. Pt reprots hx of cracked knee caps. He does try to workout w/his older kid and gets sore w/running etc. He is more painful on uneven surfaces. hx of L broken ankle w/o treatment Prior Treatments and Tests Xray-nothing visualized Treatment Goals Patient/Caregiver Goals Be able to work iwthout pain, hike w/family & workout w/son PT-OP-C Subjective Start: 06/08/22 18:07 Freq: Status: Active Protocol: Document 07/07/22 14:34 [facility] (Rec: 07/07/22 15:51 [facility] [id number]) OP-PT Subjective Patient Comments Patient Comments Pt reports just little muscle soreness no adverse affects to ther ex. PT-OP-D Balance Start: 06/08/22 18:07 Freq: Status: Active Protocol: Document 06/27/22 14:37 [facility] (Rec: 06/27/22 15:24 [facility] [id number]) Balance Tests Single Limb Standing Single Limb- Right > 30 sec min lat lean; EC 5 sec Single Limb- Left >30 sec sig lat lean; EC 4 sec PT-OP-F Manual Assessment Start: 06/08/22 18:07 Freq: Status: Active Protocol: Document 06/27/22 14:37 [facility] (Rec: 06/27/22 15:24 [facility] [id number]) Manual Assessments Soft Tissue Assessment Soft Tissue Mobility Assessment tightness: L HS, calf, ITB, tender at jt line and LCL Joint Mobility Assessment Joint Mobility Assessment L>R tibia IR and IR w/knee bend; L femur ER w/knee bend PT-OP-G Mobility & Gait Start: 06/08/22 18:07 Freq: Status: Active Protocol: Document 06/27/22 14:37 [facility] (Rec: 06/27/22 15:24 [facility] [id number]) OP Gait Assessment Comments Gait Comments dec push off L>R; dec stance time LLE and lat lean over LLE PT-OP-K Range of Motion Start: 06/08/22 18:07 Freq: Status: Active Protocol: Document 06/27/22 14:37 [facility] (Rec: 06/27/22 15:24 [facility] [id number]) Knee Goniometric Range of Motion Knee Right Flexion Active (degrees) 120 Hyper-Extension Active 2 Comments knee to wall 2 in Left Flexion Active (degrees) 119 Extension Active (degrees) 0 Comments knee to wall 1 in; flex tight PT-OP-L Special Tests Start: 06/08/22 18:07 Freq: Status: Active Protocol: Document 06/27/22 14:37 [facility] (Rec: 06/27/22 15:24 [facility] [id number]) Special Tests Knee Special Tests Segura Chondromalacia Test Results neg-does not improve pain Thessaly Test 5 Degrees Test Results positive pain Apley's Compression Test Results positive pain Sarah Test Test Results positive for pain w/med rot Amanda's Test Test Results L post Walton's Compression Test Results neg Straight Leg Raise Test Results L 78; R 90 Gold Test Results RF & hip flexors tight B Varus- 25 Degrees Test Results pain & laxity Valgus- 25 Degrees Test Results pain;mild laxity Posterior Draw Test Results neg Olu's Test Results neg PT-OP-M Strength Start: 06/08/22 18:07 Freq: Status: Active Protocol: Document 06/27/22 14:37 [facility] (Rec: 06/27/22 15:24 [facility] [id number]) Hip Strength Hip Manual Muscle Testing Right Flexion (L2) 5 Normal Extension (S1) 5 Normal Abduction 5 Normal Adduction 5 Normal External Rotation 4+ Good+ Internal Rotation 5 Normal Left Flexion (L2) 4+ Good+ Extension (S1) 4 Good Abduction 4 Good Adduction 3 Fair External Rotation 4 Good Internal Rotation 4+ Good+ Comments pain rotations Knee Strength Knee Manual Muscle Testing Right Flexion (S2) 5 Normal Extension (L3) 5 Normal Left Flexion (S2) 4 Good Extension (L3) 4- Good- Ankle/Foot Strength Ankle and Foot Manual Muscle Testing Right Dorsiflexion (L4) 5 Normal Plantarflexion (S1) 5 Normal Inversion 5 Normal Eversion (S1) 5 Normal Left Dorsiflexion (L4) 5 Normal Plantarflexion (S1) 5 Normal Inversion 5 Normal Eversion (S1) 5 Normal Comments discomfort w/testing eversion & DF ; 20 heel raises-pain lat ankle and knee PT-OP-T Assessment and Plan Start: 06/08/22 18:07 Freq: Status: Active Protocol: Document 10/02/22 11:08 [facility] (Rec: 10/02/22 11:09 [facility] [id number]) Physical Therapy Assessment Goals balance Claims Coordinator Goal (LTG) Pt will be able to do SLS on LLE w/o lat lean for 30 sec LTG Duration 09/14/22 activities Short Term Goal (STG) Pt will be able to hike and workout with his kids w/o inc pain. STG Duration 08/09/22 Claims Coordinator Goal (LTG) Pt will be able to work w/o any inc pain greater than 2/10 . LTG Duration 09/19/22 strength Short Term Goal (STG) Pt will be indep w/HEP STG Duration 07/27/22 Claims Coordinator Goal (LTG) Pt will score 5/5 on all MMT w /o inc pain to show improved stability to LLE in order to do his work requirements. LTG Duration 09/14/22 LEFS Impairment 47/80 Short Term Goal (STG) Pt will score at 58/80 on LEFS to show improved functional ability. STG Duration 08/14/22 Nursing Home Goal (LTG) Pt will score at 75/80 on LEFS to show improved functional ability. LTG Duration 09/19/22 Assessment Summary Assessment Pt was awaiting MRI at last attended visit. Pt cancelled next 2 visits d/t this and no showed last visit. He is no longer attending PT as last visit was 07/07. DC at this time d/t no longer attendign PT. Physical Therapy Plan Discharge Physical Therapy Discharge Reasons No Longer Attending PT
== END 2022-10-05 08:50 | disposition home or self-care (01) ==
LOC: PHYS 14:30
PROVIDERS: Family Provider Physician Assistant Medical; PCP Family Medicine Sports Medicine; Referring Provider Family Medicine Sports Medicine; Visit Provider Family Medicine Sports Medicine
DX: M25.562 Pain in left knee (principal); G89.29 Other chronic pain; R53.1 Weakness; R26.2 Difficulty in walking, not elsewhere classified
CPT/HCPCS: 97110; 97140; 97162

== ENCOUNTER 2024-05-06 17:15 | Emergency (ER) | payer OTHER, MEDICAID, SELFPAY ==
[2024-05-06 17:36] VITALS: BP 147/94; PULSE 81; RESP 18; TEMP 37.2; O2SAT 94; BMI 43.0
[2024-05-06 18:28] LABS: Influenza A - CEPHEID Flu A NEGATIVE (NEGATIVE); Influenza B - CEPHEID Flu B NEGATIVE (NEGATIVE); Respiratory Syncytial Virus Negative (Negative)
[2024-05-06 18:31] LABS: COVID-19 CEPHEID 4-PLEX PCR Negative (Negative)
[2024-05-06] MEDS: ACETAMINOPHEN 325 MG TABLET 975 MG PO (20:36)
--- NOTE | 2024-05-06 21:27 | ED_ITS ---
HPI - URI/Sore Throat General Chief Complaint: Upper Respiratory Symptoms Stated Complaint: fever, cold sweats, full body soreness and achey Time Seen by Provider: 05/06/24 20:58 Source: patient Mode of arrival: Ambulatory History of Present Illness HPI Narrative: 39-year-old male with no reported past medical history presents by private vehicle from home for fever, cold sweats, congestion, nonproductive cough. Patient states that symptoms started 1 week ago. After 2-3 days they seemed to improve and patient felt better for a day, however he subsequently began to feel worse and is now presenting today for evaluation. Related Data Previous Rx's Medication Instructions Recorded doxycycline hyclate 100 mg tablet 100 mg PO BID #10 tabs 05/06/24 Allergies Allergy/AdvReac Type Severity Reaction Status Date / Time No Known Allergies Allergy Uncoded 06/08/22 19:35 Patient History Medical History (Updated 05/06/24 @ 21:53 by Mira Miramontes MD) No significant past medical history Surgical History No pertinent past surgical history Social History Smoking Status: Current every day smoker Smoking Status: Current every day smoker tobacco type: vaping alcohol intake frequency: a few times a month Substance Use Type: marijuana Exam Initial Vital Signs Initial Vital Signs: Vital Signs Temperature 99.0 F 05/06/24 17:36 Pulse Rate 81 05/06/24 17:36 Respiratory Rate 18 05/06/24 17:36 Blood Pressure 147/94 H 05/06/24 17:36 Pulse Oximetry 94 05/06/24 17:36 Oxygen Delivery Method Room Air 05/06/24 17:36 Const: Awake, alert, ill-appearing but nontoxic Cardiac: regular rate, regular rhythm RESP: unlabored, clear bilaterally, no wheezing Skin: Warm, Dry, intact, no rashes Neuro: AO x3, CN II-XII grossly intact, moves all extremities Course Orders Ordered: Discontinued Medications Acetaminophen (Acetaminophen 325 Mg Tablet) 975 mg PO NOW ONE Stop: 05/06/24 20:33 Last Admin: 05/06/24 20:36 Dose: 975 mg Documented By: BS Doxycycline Hyclate (Doxycycline Hyclate 100 Mg Tablet) 100 mg PO NOW ONE Stop: 05/06/24 21:48 Last Admin: 05/06/24 21:57 Dose: 100 mg Documented By: KAYLA Vital Signs Vital signs: Vital Signs - 8 hr 05/06/24 17:36 Temperature 99.0 F Pulse Rate 81 Respiratory Rate 18 Blood Pressure 147/94 H Pulse Oximetry 94 Oxygen Delivery Method Room Air MDM - URI/Sore Throat Differential Diagnosis Differential diagnosis: Likely upper respiratory infection, viral infection and bronchitis Lab Data Labs: Lab Results 05/06/24 Range/Units 17:41 SARS-CoV-2 (PCR) Negative (Negative) Influenza A (RT-PCR) Flu a negative (NEGATIVE) Influenza B (RT-PCR) Flu b negative (NEGATIVE) RSV (PCR) Negative (Negative) Imaging Data Chest x-ray: Radiologist's Impression: PROCEDURE: XR CHEST 2V INDICATIONS: rebound cough/fever after viral illness TECHNIQUE: 2 views of the chest were acquired. COMPARISON: None. FINDINGS: Surgical changes and devices: None. Lungs and pleura: Right upper lobe consolidative opacity. Left lung is clear. No pleural effusion or pneumothorax. Mediastinum: Mediastinal contours are normal. Heart size is normal. Bones and chest wall: No suspicious bony abnormalities. Soft tissues appear unremarkable. IMPRESSION: Right upper lobe consolidation is suspicious for pneumonia. Approved by: Maulik Vee M.D. on 05/06/2024 at 21:42 [facility] Narrative Medical decision making narrative: Nontoxic appearing patient presenting for rebound symptoms after what sounds like a viral illness. Afebrile on arrival, lungs seemed to be clear to auscultation bilaterally, however due to rebound symptoms chest x-ray will be ordered to assess for underlying pneumonia. Flu, COVID, RSV swabs negative. Chest x-ray shows possible right-sided infiltrate. Out of precaution a prescription for doxycycline sent to pharmacy of choice, initial dose given in the emergency department. Patient counseled on the importance of finishing all antibiotics as prescribed and supportive measures counseled. Discharge Plan Departure Patient Disposition: Home Clinical Impression: Community acquired pneumonia Instructions: DI for Pneumonia -- Adult Activity Restrictions/Additional Instructions: Your x-ray showed that you may have a right-sided pneumonia. Finish all antibiotics as prescribed even if you feel better. Follow up with a primary care doctor to make sure that your pneumonia resolves. Take Tylenol and ibuprofen as needed for fever or discomfort. You may take [id number] cough and cold medication such as Robitussin or Mucinex to help your symptoms. Prescriptions: New doxycycline hyclate 100 mg tablet 100 mg PO BID Qty: 10 0RF Referrals: Chalino Recio MD [Primary Care Provider] - Stand Alone Forms: Patient Portal/API/Survey
[2024-05-06] MEDS: DOXYCYCLINE HYCLATE 100 MG TABLET PO (21:57)
[2024-05-06 22:03] VITALS: BP 147/67; PULSE 89; RESP 16; TEMP 37.1; O2SAT 96
== END 2024-05-06 22:05 | disposition home or self-care (01) ==
PROVIDERS: Emergency Medicine; Emergency Provider Emergency Medicine; Family Provider Physician Assistant Medical; PCP Family Medicine Sports Medicine
DX: J18.9 Pneumonia, unspecified organism (principal); R05.9 Cough, unspecified; Z11.52 Encounter for screening for COVID-19
CPT/HCPCS: 0241U; 71046; 99283